=== PATIENT | male | born 1940 | race Caucasian/White ===

== ENCOUNTER → 2016-09-29 | Outpatient (CLI) | payer MEDICARE, BC ==
[2016-09-29 17:47] LABS: Blood Urea Nitrogen 15 mg/dL (9-20); Non-African American GFR(MDRD) >60 (>60 ml/min/1.73 sqM)
--- NOTE | 2016-09-30 08:17 | CT ---
EXAMINATION TYPE: CT abdomen pelvis w con DATE OF EXAM: 09/29/2016 6:59 PM COMPARISON: 06/07/2011 INDICATION: weight loss and generalized pain DLP: 372.8 mGycm, Automated exposure control for dose reduction was used. CONTRAST: 100 mL of Omnipaque 300. Study performed with Oral Contrast TECHNIQUE: Axial images were obtained from above the diaphragm to the pubic rami in the axial plane a t 5 mm thick sections. Reconstructed images are reviewed on the computer in the coronal plane. FINDINGS: Limited CT sections are obtained the lung bases. Emphysematous changes are within the lung bases. Mi nimal lingular pneumonitis is margin.. CT ABDOMEN: Liver: There is a 3.1 cm cyst measuring 12 Hounsfield units in the medial right lobe liver. Directly adjacent is a 2.0 cm cyst measuring 18 Hounsfield. Additional cysts are within the left lobe liver me asuring 1.3, 1.3, 0.8 cm these are smaller which are difficult to confirm as simple cysts. Additional punctate hypodensities are scattered within the right and left lobe liver too small to classify with a hypodense appearance suggestive for cysts. Spleen: Normal Pancreas: Normal Adrenal glands: The adrenal glands are normal. Gallbladder: Normal Kidneys: No masses are evident. No hydronephrosis is present. No cysts are present. Delayed images were obtained through the kidneys, which remain unremarkable. Aorta: Vascular calcification is within the aorta. Subtle fusiform prominence is within the mid abdo magda aorta with maximum AP dimension 2.2 cm. Inferior vena cava: Normal. CT PELVIS: Loops of bowel within the abdomen and pelvis are normal. There are loops of bowel which are incom pletely distended or lack oral contrast limiting their evaluation. Scattered diverticuli throughout t he sigmoid colon. No suspicious adjacent inflammatory changes evident to suggest acute diverticulitis . Appendix: Not clearly identified. No suspicious tubular structures are evident. Urinary bladder: Normal. Genitourinary structures: Prostate contains calcification. Osseous structures: No suspicious lytic or sclerotic lesions. Scoliosis is present. Degenerative join t changes are at the bilateral hips COMPARISON: Hepatic cysts were present previously. Diverticulosis is unchanged. Emphysematous changes at the lung bases likewise appears stable IMPRESSIONS: 1. Diverticulosis without acute diverticulitis sigmoid colon. 2. Hepatic cysts
== END | disposition home or self-care (01) ==
LOC: RADCTMAIN 16:47
PROVIDERS: ATTEND Family Medicine
DX: K57.90 Diverticulosis of intestine, part unspecified, without perforation or abscess without bleeding (principal); K76.89 Other specified diseases of liver; Z85.46 Personal history of malignant neoplasm of prostate
CPT/HCPCS: 82565; 84520; 74177; 36415; Q9967

== ENCOUNTER 2017-01-21 11:19 | Inpatient (IN) | payer MEDICARE, BC ==
--- NOTE | 2017-01-21 11:57 | ED ---
General Adult HPI - General Chief complaint: Shortness of Breath Stated complaint: diff breathing Time Seen by Provider: 01/21/17 11:46 Source: patient, RN notes reviewed Mode of arrival: ambulatory Limitations: no limitations - History of Present Illness Initial comments: Patient is a pleasant 76-year-old male presenting to the emergency department with complaints of difficulty in breathing. Patient states he was somewhat vague as last week and did have a sudden sharp discomfort of the right upper chest. Patient states he has had some difficulty in breathing since that time that has progressed. Patient has been short of breath at nighttime and now with exertion. Symptoms seemed to be worse especially today. No pain since 1 week ago. Patient did go to his doctor prior to arrival and was told his lung collapsed and to come to the emergency department. - Related Data Home Medications Medication Instructions Recorded Confirmed Fluticasone/Vilanterol [Breo 1 puff INHALATION RT-Q4H 01/21/17 01/21/17 Ellipta 100-25 Mcg Inhaler] Terazosin HCl 5 mg PO HS 01/21/17 01/21/17 Allergies Allergy/AdvReac Type Severity Reaction Status Date / Time No Known Allergies Allergy Verified 01/21/17 12:13 Review of Systems ROS Statement: Those systems with pertinent positive or pertinent negative responses have been documented in the HPI. ROS Other: All systems not noted in ROS Statement are negative. Constitutional: Denies: fever Eyes: Denies: eye pain ENT: Denies: ear pain Respiratory: Reports: dyspnea Cardiovascular: Denies: palpitations Endocrine: Denies: fatigue Gastrointestinal: Denies: abdominal pain Genitourinary: Denies: dysuria Musculoskeletal: Denies: back pain Skin: Denies: rash Neurological: Denies: weakness Past Medical History Past Medical History: Cancer Additional Past Medical History / Comment(s): pneumothorax rt in 1969 History of Any Multi-Drug Resistant Organisms: None Reported Past Surgical History: Bowel Resection, Heart Catheterization Past Psychological History: No Psychological Hx Reported Smoking Status: Former smoker Past Alcohol Use History: None Reported Past Drug Use History: None Reported General Exam Limitations: no limitations General appearance: alert, in no apparent distress Head exam: Present: atraumatic Eye exam: Present: normal appearance, PERRL ENT exam: Present: normal oropharynx Neck exam: Present: normal inspection Respiratory exam: Present: decreased breath sounds (On the right side) Cardiovascular Exam: Present: regular rate, normal rhythm GI/Abdominal exam: Present: soft. Absent: tenderness Extremities exam: Present: normal inspection Neurological exam: Present: alert Psychiatric exam: Present: normal affect, normal mood Skin exam: Absent: rash Course Vital Signs 01/21/17 01/21/17 01/21/17 11:30 12:35 13:00 Temperature 98.3 F Pulse Rate 110 H 102 H 106 H Respiratory 26 H 18 Rate Blood Pressure 134/67 128/74 O2 Sat by Pulse 87 L 95 96 Oximetry 01/21/17 01/21/17 01/21/17 13:41 13:50 13:53 Temperature Pulse Rate 98 91 91 Respiratory 18 18 18 Rate Blood Pressure 119/69 125/82 151/89 O2 Sat by Pulse 99 99 99 Oximetry 01/21/17 01/21/17 01/21/17 13:59 14:06 14:12 Temperature Pulse Rate 83 80 83 Respiratory 18 18 18 Rate Blood Pressure 142/86 133/79 146/87 O2 Sat by Pulse 100 100 100 Oximetry 01/21/17 01/21/17 01/21/17 14:17 14:52 15:14 Temperature Pulse Rate 100 73 74 Respiratory 18 18 18 Rate Blood Pressure 153/88 158/83 157/81 O2 Sat by Pulse 79 L 100 100 Oximetry - Reevaluation(s) Reevaluation #1: 01/21/17 14:16 Repeat x-ray shows improvement of upper lung pneumothorax however appears to be somewhat worse in the lower part. Wall suction had been turned off and this has been turned back on. We will do a repeat x-ray. 01/21/17 15:22 Case was earlier discussed with Dr. Cervantes, who will consult and also requests cardiothoracic consult with Dr. mcnair. Case discussed with Dr. madden, who will admit. Chest x-ray #3 shows improvement of pneumothorax. Procedures - Chest Tube Insertion Consent Obtained: written consent Time Out Performed: Yes Side of Procedure: right Indication: Pneumothorax Placed on monitor/pulse oximetry: Yes Site Prep: Chloroprep Local Anesthesia: Lidocaine 1% Insertion Site: 5th Intercostal Space, Other (Anterior axillary line) Scalpel: #10 Open into Pleural Space Using: Trocar Tube Size (Samoan): 28 Returns: Air Sutured in Place: Yes Dressing Applied: Petroleum Gauze Attached to Suction: Yes Type of Suction: Pleuravac Repeat X-ray Results: Other (Upper lung appears well inflated. Lower lung has continued or possibly worse pneumothorax) Patient Tolerated Procedure: no complications - Procedural Sedation Procedural Sedation Start Time: 13:50 Procedural Sedation Stop Time: 14:14 Indications: other (Pneumothorax) Mallampati Airway Score: 2 Preparation: lunchroom monitor applied, pulse oximeter, capnometry used, supplemental O2 applied, suction/airway equipment at bedside IV Etomidate Dose (mgs): 10 Complications: none Patient Tolerated Procedure: well, no complications Medical Decision Making - Lab Data Result diagrams: 01/21/17 11:50 01/21/17 11:50 Lab Results 01/21/17 01/21/17 01/21/17 Range/Units 11:50 11:50 11:50 WBC 6.3 (3.8-10.6) k/uL RBC 4.91 (4.30-5.90) m/uL Hgb 16.2 (13.0-17.5) gm/dL Hct 46.3 (39.0-53.0) % MCV 94.3 (80.0-100.0) fL MCH 32.9 (25.0-35.0) pg MCHC 34.9 (31.0-37.0) g/dL RDW 13.2 (11.5-15.5) % Plt Count 190 (150-450) k/uL Neutrophils % 79 % Lymphocytes % 13 % Monocytes % 5 % Eosinophils % 2 % Basophils % 0 % Neutrophils # 4.9 (1.3-7.7) k/uL Lymphocytes # 0.8 L (1.0-4.8) k/uL Monocytes # 0.3 (0-1.0) k/uL Eosinophils # 0.1 (0-0.7) k/uL Basophils # 0.0 (0-0.2) k/uL PT 11.1 (9.0-12.0) sec INR 1.1 (<1.1) APTT 27.1 (22.0-30.0) sec Sodium 144 (137-145) mmol/L Potassium 4.3 (3.5-5.1) mmol/L Chloride 106 (98-107) mmol/L Carbon Dioxide 26 (22-30) mmol/L Anion Gap 12 mmol/L BUN 13 (9-20) mg/dL Creatinine 0.90 (0.66-1.25) mg/dL Est GFR (MDRD) Af Amer >60 (>60 ml/min/1.73 sqM) Est GFR (MDRD) Non-Af >60 (>60 ml/min/1.73 sqM) Glucose 112 H (74-99) mg/dL Calcium 9.7 (8.4-10.2) mg/dL Total Bilirubin 0.8 (0.2-1.3) mg/dL AST 18 (17-59) U/L ALT 17 L (21-72) U/L Alkaline Phosphatase 88 (38-126) U/L Total Protein 7.9 (6.3-8.2) g/dL Albumin 4.7 (3.5-5.0) g/dL - Radiology Data Radiology results: image reviewed (Chest x-ray shows moderate to large right pneumothorax) Critical Care Time Critical Care Time: Yes Total Critical Care Time: 32 Disposition Clinical Impression: Pneumothorax Disposition: ADMITTED IP TO THIS [facility] Referrals: Osvaldo Cummings MD [Primary Care Provider] - 1-2 days
[2017-01-21 12:17] LABS: Basophils % (A) 0 %; CH 33.1; CHCM 35.3; Eosinophils # (A) 0.1 k/uL (0-0.7); Eosinophils % (A) 2 %; HCT 46.3 % (39.0-53.0); HDW 2.94; HGB 16.2 gm/dL (13.0-17.5); Luc # (Auto) 0.05; Luc % (Auto) 1; Lymphocytes # (A) 0.8 k/uL (1.0-4.8); Lymphocytes % (A) 13 %; MCH 32.9 pg (25.0-35.0); MCHC 34.9 g/dL (31.0-37.0); MCV 94.3 fL (80.0-100.0); Mean Platelet Volume 6.8; Monocytes # (A) 0.3 k/uL (0-1.0); Monocytes % (A) 5 %; Neutrophils # (A) 4.9 k/uL (1.3-7.7); Neutrophils % (A) 79 %; RBC 4.91 m/uL (4.30-5.90); RDW 13.2 % (11.5-15.5); WBC 6.3 k/uL (3.8-10.6); WBC (Perox) 5.62
[2017-01-21 12:20] LABS: INR 1.1 (<1.1); Partial Thromboplastin Time 27.1 sec (22.0-30.0); Prothrombin Time 11.1 sec (9.0-12.0)
[2017-01-21 12:29] LABS: ALT 17 U/L (21-72); AST 18 U/L (17-59); Alkaline Phosphatase 88 U/L (38-126); Anion Gap 12 mmol/L; Blood Urea Nitrogen 13 mg/dL (9-20); Calcium 9.7 mg/dL (8.4-10.2); Carbon Dioxide 26 mmol/L (22-30); Chloride 106 mmol/L (98-107); Glucose 112 mg/dL (74-99); Non-African American GFR(MDRD) >60 (>60 ml/min/1.73 sqM); Potassium 4.3 mmol/L (3.5-5.1); Sodium 144 mmol/L (137-145); Total Bilirubin 0.8 mg/dL (0.2-1.3); Total Protein 7.9 g/dL (6.3-8.2)
[2017-01-21] MEDS ORDERED: LORazepam 2 MG/ML SYRINGE IV STA (12:30)
--- NOTE | 2017-01-21 12:30 | XR ---
EXAMINATION TYPE: XR chest 2V DATE OF EXAM: 01/21/2017 12:13 PM COMPARISON: NONE TECHNIQUE: PA and lateral views submitted. HISTORY: Pneumonia FINDINGS: Diffuse emphysematous changes are seen. However there appears to be a pleural reflection along the up per and mid right lateral chest suspicious for large pneumothorax. Due to positioning and rotation co uld not assess for deviation of the mediastinum. Left lung clear. Surgical clips are noted in the axi lla. Results called to the emergency room. IMPRESSION: 1. Findings are suspicious for a large right pneumothorax estimated at 40%. Recommend CT chest.
[2017-01-21] MEDS ORDERED: HYDROmorphone 1 MG/ML 1 ML SYRINGE IVP STA (13:30)
[2017-01-21] MEDS ORDERED: ETOMIDATE 2 MG/ML 10 ML VIAL IVP STA (13:50)
--- NOTE | 2017-01-21 14:30 | XR ---
EXAMINATION TYPE: XR chest 1V portable DATE OF EXAM: 01/21/2017 2:18 PM Comparison: 01/21/2017, earlier today Clinical History: 76-year-old male with pain status post right chest tube insertion Findings: Apically directed right-sided chest tube has been placed. There is residual moderate sized pneumothor ax with a prominent lateral component. The previous apical component has significantly decreased in s ize. There is some interstitial densities within the reinflated right upper lobe possibly representin g edematous change. Heart is normal size. Left lung and pleural space appear clear. Impression: Partial reinflation of the right upper lobe after right chest tube placement. Moderate-sized pneumoth orax remains primarily with a lateral component.
--- NOTE | 2017-01-21 15:11 | XR ---
EXAMINATION TYPE: XR chest 1V portable DATE OF EXAM: 01/21/2017 2:46 PM Comparison: Earlier today Clinical History: 76-year-old male Pneumothorax Findings: Right-sided chest tube remains. There is progressive decrease in the patient's pneumothorax. No appre ciable pneumothorax remains. Band of atelectasis or scar at the right mid to lower lung. Heart is upp er limits of normal in size. Left lung and pleural space clear. Impression: Right-sided chest tube in place. There is progressive expansion of the right lung. No residual pneumo thorax is appreciated.
[2017-01-21] MEDS ORDERED: NALOXONE 0.4 MG/ML 1 ML VIAL IV PRN (15:23)
[2017-01-21] MEDS ORDERED: ONDANSETRON 4 MG/2 ML VIAL IVP STA (15:31)
[2017-01-21] MEDS: SODIUM CHLORIDE 0.9% 1,000 ML IV SCH (15:34)
--- NOTE | 2017-01-21 15:52 | P.GSCN ---
History of Present Illness Consult date: 01/21/17 Reason for Consult: Spontaneous pneumothorax History of present illness: The patient is a 76-year-old male who presented to the emergency department earlier today with difficulty breathing. Apparently his shortness of breath began about a week ago when he was in [place]. He had some right-sided chest discomfort at that time as well. Today the pain and breathlessness became worse and he saw his primary care physician. A chest x-ray revealed a large right-sided pneumothorax. The patient was referred directly to the emergency department. A chest tube was placed by the ED physician with reexpansion of the right lung. Apparently he had a similar episode of spontaneous right pneumothorax approximately 40 years ago which was treated in a like manner. We were asked to see him for chest tube management. Review of Systems All systems: negative - Cardiovascular Reports shortness of breath - Gastrointestinal Reports nausea Past Medical History Past Medical History: Cancer Additional Past Medical History / Comment(s): pneumothorax rt in 1969 History of Any Multi-Drug Resistant Organisms: None Reported Past Surgical History: Bowel Resection, Heart Catheterization Past Psychological History: No Psychological Hx Reported Smoking Status: Current every day smoker Past Alcohol Use History: None Reported Past Drug Use History: None Reported Medications and Allergies Home Medications Medication Instructions Recorded Confirmed Type Fluticasone/Vilanterol [Breo 1 puff INHALATION RT-Q4H 01/21/17 01/21/17 History Ellipta 100-25 Mcg Inhaler] Terazosin HCl 5 mg PO HS 01/21/17 01/21/17 History Allergies Allergy/AdvReac Type Severity Reaction Status Date / Time No Known Allergies Allergy Verified 01/21/17 12:13 Surgical - Exam Vital Signs Temp Pulse Resp BP Pulse Ox 98.3 F 110 H 26 H 134/67 87 L 01/21/17 11:30 01/21/17 11:30 01/21/17 11:30 01/21/17 11:30 01/21/17 11:30 - General cachectic - Eyes normal ocular movement - Respiratory normal respiratory effort, clear to auscultation - Cardiovascular Rhythm: regular - Abdomen Abdomen: soft, non tender - Psychiatric oriented to time, oriented to person, oriented to place, speech is normal Results - Labs 01/21/17 11:50 01/21/17 11:50 Abnormal Lab Results - Last 24 Hours (Table) 01/21/17 01/21/17 Range/Units 11:50 11:50 Lymphocytes # 0.8 L (1.0-4.8) k/uL Glucose 112 H (74-99) mg/dL ALT 17 L (21-72) U/L Diabetes panel 01/21/17 Range/Units 11:50 Sodium 144 (137-145) mmol/L Potassium 4.3 (3.5-5.1) mmol/L Chloride 106 (98-107) mmol/L Carbon Dioxide 26 (22-30) mmol/L BUN 13 (9-20) mg/dL Creatinine 0.90 (0.66-1.25) mg/dL Glucose 112 H (74-99) mg/dL Calcium 9.7 (8.4-10.2) mg/dL AST 18 (17-59) U/L ALT 17 L (21-72) U/L Alkaline Phosphatase 88 (38-126) U/L Total Protein 7.9 (6.3-8.2) g/dL Albumin 4.7 (3.5-5.0) g/dL Calcium panel 01/21/17 Range/Units 11:50 Calcium 9.7 (8.4-10.2) mg/dL Albumin 4.7 (3.5-5.0) g/dL Pituitary panel 01/21/17 Range/Units 11:50 Sodium 144 (137-145) mmol/L Potassium 4.3 (3.5-5.1) mmol/L Chloride 106 (98-107) mmol/L Carbon Dioxide 26 (22-30) mmol/L BUN 13 (9-20) mg/dL Creatinine 0.90 (0.66-1.25) mg/dL Glucose 112 H (74-99) mg/dL Calcium 9.7 (8.4-10.2) mg/dL Adrenal panel 01/21/17 Range/Units 11:50 Sodium 144 (137-145) mmol/L Potassium 4.3 (3.5-5.1) mmol/L Chloride 106 (98-107) mmol/L Carbon Dioxide 26 (22-30) mmol/L BUN 13 (9-20) mg/dL Creatinine 0.90 (0.66-1.25) mg/dL Glucose 112 H (74-99) mg/dL Calcium 9.7 (8.4-10.2) mg/dL Total Bilirubin 0.8 (0.2-1.3) mg/dL AST 18 (17-59) U/L ALT 17 L (21-72) U/L Alkaline Phosphatase 88 (38-126) U/L Total Protein 7.9 (6.3-8.2) g/dL Albumin 4.7 (3.5-5.0) g/dL - Imaging Chest x-ray: image reviewed Assessment and Plan (1) Pneumothorax Status: Acute Plan: The patient's initial chest x-ray in the emergency department revealed a large right spontaneous pneumothorax. A chest tube was placed by the emergency department physician and follow up x-ray revealed reexpansion of the right lung. There is no air leak noted on suction. The patient will be admitted to the floor for observation. I would keep the chest tube to suction for now and plan on ordering a follow-up chest x-ray in the morning. Thank you for allowing me to participate in the care of this patient. If you have any questions please feel free to contact me at your earliest convenience. Time with Patient: Greater than 30
[2017-01-21] MEDS ORDERED: MORPHINE SULFATE 4 MG/ML SYRINGE IVP STA (16:09)
[2017-01-21 18:12] VITALS: BMI 16.9
[2017-01-21] MEDS ORDERED: ACETAMINOPHEN TAB 500 MG TAB PO PRN (19:38)
[2017-01-21] MEDS: KETOROLAC 30 MG/ML 1 ML VIAL IVP SCH (19:46)
[2017-01-22] MEDS: KETOROLAC 30 MG/ML 1 ML VIAL IVP SCH ×5 (00:23→23:49)
--- NOTE | 2017-01-22 10:59 | XR ---
EXAMINATION TYPE: XR chest 1V DATE OF EXAM: 01/22/2017 10:40 AM COMPARISON: 01/21/2017 HISTORY: 76-year-old male right-sided pneumothorax follow-up, chest tube. TECHNIQUE: Single frontal view of the chest is obtained. FINDINGS: Heart is normal size. Continued medial right basilar opacity probably atelectasis. Apically directed right-sided chest tube is in place. Possible trace medial right apical pneumothorax. Underlying emphy sema. IMPRESSION: Right-sided chest tube with possible trace medial right apical pneumothorax. Continued focal opacity along the right heart margin likely atelectasis.
--- NOTE | 2017-01-22 11:25 | P.PN ---
Progress Note - Text Thoracic Surgery Nursing POD: #1, right pleural chest tube insertion by emergency room for large right pneumothorax Patient awake and alert, no distress noted, no specific complaints. Vital Signs: Afebrile Vital Signs - 24 hr 01/21/17 01/21/17 01/21/17 11:30 12:35 13:00 Temperature 98.3 F Pulse Rate 110 H 102 H 106 H Pulse Rate [ Right] Respiratory 26 H 18 Rate Blood Pressure 134/67 128/74 Blood Pressure [Right Arm] O2 Sat by Pulse 87 L 95 96 Oximetry 01/21/17 01/21/17 01/21/17 13:41 13:50 13:53 Temperature Pulse Rate 98 91 91 Pulse Rate [ Right] Respiratory 18 18 18 Rate Blood Pressure 119/69 125/82 151/89 Blood Pressure [Right Arm] O2 Sat by Pulse 99 99 99 Oximetry 01/21/17 01/21/17 01/21/17 13:59 14:06 14:12 Temperature Pulse Rate 83 80 83 Pulse Rate [ Right] Respiratory 18 18 18 Rate Blood Pressure 142/86 133/79 146/87 Blood Pressure [Right Arm] O2 Sat by Pulse 100 100 100 Oximetry 01/21/17 01/21/17 01/21/17 14:17 14:52 15:14 Temperature Pulse Rate 100 73 74 Pulse Rate [ Right] Respiratory 18 18 18 Rate Blood Pressure 153/88 158/83 157/81 Blood Pressure [Right Arm] O2 Sat by Pulse 79 L 100 100 Oximetry 01/21/17 01/21/17 01/21/17 16:00 16:56 22:27 Temperature 97.1 F L 97.5 F L Pulse Rate 83 80 Pulse Rate [ 68 Right] Respiratory 18 18 20 Rate Blood Pressure 167/72 182/81 Blood Pressure 163/73 [Right Arm] O2 Sat by Pulse 97 98 96 Oximetry 01/22/17 07:00 Temperature 97.9 F Pulse Rate Pulse Rate [ 60 Right] Respiratory 16 Rate Blood Pressure Blood Pressure 117/60 [Right Arm] O2 Sat by Pulse 96 Oximetry Labs: Short CBC 01/21/17 Range/Units 11:50 WBC 6.3 (3.8-10.6) k/uL Hgb 16.2 (13.0-17.5) gm/dL Hct 46.3 (39.0-53.0) % Plt Count 190 (150-450) k/uL Neutrophils # 4.9 (1.3-7.7) k/uL BMP 01/21/17 11:50 Sodium 144 Potassium 4.3 Chloride 106 Carbon Dioxide 26 BUN 13 Creatinine 0.90 Glucose 112 H Calcium 9.7 Liver Function 01/21/17 Range/Units 11:50 Total Bilirubin 0.8 (0.2-1.3) mg/dL AST 18 (17-59) U/L ALT 17 L (21-72) U/L Alkaline Phosphatase 88 (38-126) U/L Albumin 4.7 (3.5-5.0) g/dL Chest Tubes: Right pleural chest tube with very tiny intermittent air leak and minimal drainage. Intake & Output 01/21/17 01/22/17 01/22/17 22:59 06:59 14:59 Intake Total 140 240 Balance 140 240 Weight 61.235 kg Intake: IV 140 Sodium Chloride 0.9% 1, 140 000 ml @ 20 mls/hr IV . Q24H [facility] Rx#:[id number] Oral 240 Other: # Voids 1 Plan: Pneumothorax resolved with right pleural chest tube insertion. Chest tube remains to suction today-possibly to waterseal
[2017-01-22] MEDS ORDERED: NON-FORMULARY DRUG (Fluticasone/Vilanterol [Breo Ellipta 100-25 Mcg Inhaler] 1 PUFF) INHALATION SCH (12:00)
--- NOTE | 2017-01-22 13:16 | P.CNPUL ---
History of Present Illness Consult date: 01/22/17 Reason for consult: pneumothorax Chief complaint: Shortness of breath and chest pain History of present illness: Patient seen and examined covering for Dr. Sullivan This is a 76-year-old gentleman who presented emergency department complaining of shortness of breath and chest pain. The patient states that it can suddenly in the right side of his chest. He has a history of spontaneous pneumothorax about 40 years ago and states it felt the same. He was found in the emergency department to have a right pneumothorax and chest tube was placed. His most recent chest x-ray shows improvement of the right pneumothorax. The patient states he does smoke cigarettes, half a pack per day since he was a teenager. He did quit in the "cold turkey." He states that he hasn't had a cigarette since about a week ago. Review of Systems All systems: negative Past Medical History Past Medical History: Cancer Additional Past Medical History / Comment(s): pneumothorax rt in 1969 History of Any Multi-Drug Resistant Organisms: None Reported Past Surgical History: Bowel Resection, Heart Catheterization Past Psychological History: No Psychological Hx Reported Smoking Status: Current every day smoker Past Alcohol Use History: None Reported Past Drug Use History: None Reported - Past Family History Mother Family Medical History: No Reported History Medications and Allergies Home Medications Medication Instructions Recorded Confirmed Type Fluticasone/Vilanterol [Breo 1 puff INHALATION RT-Q4H 01/21/17 01/21/17 History Ellipta 100-25 Mcg Inhaler] Terazosin HCl 5 mg PO HS 01/21/17 01/21/17 History Allergies Allergy/AdvReac Type Severity Reaction Status Date / Time No Known Allergies Allergy Verified 01/21/17 12:13 Physical Exam Osteopathic Statement: *. No significant issues noted on an osteopathic structural exam other than those noted in the History and Physical/Consult. Vitals: Vital Signs Temp Pulse Pulse Resp BP BP Pulse Ox 01/22/17 07:00 97.9 F 60 16 117/60 96 01/21/17 22:27 97.5 F L 68 20 163/73 96 01/21/17 16:56 97.1 F L 80 18 182/81 98 01/21/17 16:00 83 18 167/72 97 01/21/17 15:14 74 18 157/81 100 01/21/17 14:52 73 18 158/83 100 05/19/17 14:17 100 18 153/88 79 L 01/21/17 14:12 83 18 146/87 100 01/21/17 14:06 80 18 133/79 100 01/21/17 13:59 83 18 142/86 100 01/21/17 13:53 91 18 151/89 99 01/21/17 13:50 91 18 125/82 99 01/21/17 13:41 98 18 119/69 99 Intake and Output 01/21/17 01/22/17 01/22/17 22:59 06:59 14:59 Intake Total 140 240 Balance 140 240 Intake: IV 140 Sodium Chloride 0.9% 1, 140 000 ml @ 20 mls/hr IV . Q24H [facility] Rx#:[id number] Oral 240 Other: # Voids 1 Weight 61.235 kg Gen.: Patient is alert and oriented 3, no acute distress, thin Cardiovascular: Regular rate and rhythm, S1/S2 Lungs: Diminished breath sounds bilaterally, right chest tube in place Abdomen: Soft nontender nondistended positive bowel sounds next Extremities: No edema Results - Laboratory Findings CBC and BMP: 01/21/17 11:50 01/21/17 11:50 PT/INR, D-dimer PT 11.1 sec (9.0-12.0) 01/21/17 11:50 INR 1.1 (<1.1) 01/21/17 11:50 Abnormal lab findings: Abnormal Labs 01/21/17 01/21/17 11:50 11:50 Lymphocytes # 0.8 L Glucose 112 H ALT 17 L - Diagnostic Findings Chest x-ray: report reviewed, image reviewed Assessment and Plan Plan: Acute right spontaneous pneumothorax, status post chest tube placement Concern for emphysema and underlying COPD Dyspnea and chest pain secondary to above Active tobacco abuse History of spontaneous pneumothorax 40 years ago History of skin cancer and prostate cancer, status post radiation O2 to maintain saturation greater than or equal to 88% Chest tube per thoracic surgery Will check alpha-1 Smoking cessation is highly recommended Bronchodilators and Pulmicort Nicotine TD Incentive spirometry and pulmonary hygiene GI and DVT prophylaxis Pain control Outpatient pulmonary follow up with PFT Thank you for this consultation we'll continue to follow along.
[2017-01-22] MEDS: IPRATROPIUM-ALBUTEROL 3 ML NEB INHALATION SCH ×2 (15:39→19:26)
[2017-01-22] MEDS: ENOXAPARIN 40 MG/0.4 ML SYRINGE SQ SCH (16:48)
[2017-01-22] MEDS: SODIUM CHLORIDE 0.9% 1,000 ML IV SCH (16:51)
[2017-01-22] MEDS: NICOTINE 21MG/24HR PATCH TRANSDERM SCH (16:52)
--- NOTE | 2017-01-22 17:12 | HP ---
DATE OF ADMISSION: 01/21/2017 PRESENTING COMPLAINT: Short of breath. HISTORY OF PRESENTING COMPLAINT: This 76-year-old patient of Dr. Cummings has had a prior pneumothorax in the 1970s, is a smoker, was in [place] celebrating his 50th anniversary with his , was feeling very short of breath, felt better lying down, decided to come down here and visit Dr. Cummings. Chest x-ray confirmed a pneumothorax, came down to the ER. A chest tube was placed. The patient feels a bit better, tired. The patient is a long-standing smoker. REVIEW OF SYSTEMS: CONSTITUTIONAL: Tired. HEENT: None. RESPIRATORY: As above. CARDIOVASCULAR: None. GASTROINTESTINAL: None. GENITOURINARY: None. MUSCULOSKELETAL: None. DERMATOLOGIC: None. HEMATOLOGIC: None. LYMPHATIC: None. PSYCHIATRIC: None. NEUROLOGICAL: None. PAST MEDICAL HISTORY: Pneumothorax. PAST SURGICAL HISTORY: Bowel resection, probably for cancer, cardiac catheterization. SOCIAL HISTORY: Smoking, close to 1/2 to 1 pack a day. . FAMILY HISTORY: Reviewed, noncontributory to presentation. HOME MEDICATIONS: 1. Breo Ellipta 1 puff q.4 2. Terazosin 5 mg p.o. q.h.s. for BPH FAMILY HISTORY: Reviewed, noncontributory to presentation currently. On examination, vital signs on presentation: Temperature 97.1, pulse 80, respirations 18, blood pressure 162/73, pulse ox 96% on 2L. GENERAL APPEARANCE: Thin build. Sitting up, not in distress. EYES: Pupils equal. Conjunctivae normal. HEENT: Oral cavity normal. NECK: JVD not raised. Mass not palpable. RESPIRATORY: Effort normal. LUNGS: Diminished breath sounds on the right side. CARDIOVASCULAR: First and second sounds normal. No edema. ABDOMEN: Soft, nontender. Liver and spleen not palpable. LYMPHATIC: No lymph node palpable in neck or axillae. PSYCHIATRY: Alert and oriented x3. Mood and affect normal. INVESTIGATIONS: White count 6.3, hemoglobin 16.2. Potassium 4.3, BUN and creatinine are normal. Chest x-ray: Large right pneumothorax, 40% on presentation, chest tube present. ASSESSMENT: 1. Recurrent spontaneous right-sided pneumothorax in a patient who had pneumothorax about 40 years ago in a patient who is a smoker. 2. Chronic obstructive pulmonary disease in a current smoker. 3. Chronic nicotine dependence. Patient is a smoker. 4. Benign prostatic hypertrophy. PLAN: Patient has a chest tube in place. Will resume patient's Hytrin. Will put the patient on bronchodilators and nebulized steroids. Care was discussed with the patient. Questions were answered.
--- NOTE | 2017-01-22 18:13 | XR ---
EXAMINATION TYPE: XR chest 1V portable DATE OF EXAM: 01/22/2017 6:07 PM Comparison: Earlier today Clinical History: 76-year-old male right chest pain Findings: Heart is normal size. Bullous change at the right base. It located direct and right-sided chest tube remains in place with relatively similar trace right apical pneumothorax. Similar opacity medial righ t base likely atelectasis. Impression: Overall stable exam. Right-sided chest tube with trace right apical pneumothorax.
[2017-01-22] MEDS: BUDESONIDE 0.5 MG/2 ML NEBU INHALATION SCH (19:26)
[2017-01-22] MEDS: TERAZOSIN 5 MG CAP PO SCH (20:56)
[2017-01-23] MEDS: KETOROLAC 30 MG/ML 1 ML VIAL IVP SCH ×4 (05:49→23:24)
[2017-01-23] MEDS: IPRATROPIUM-ALBUTEROL 3 ML NEB INHALATION SCH ×4 (08:48→19:51)
[2017-01-23] MEDS: BUDESONIDE 0.5 MG/2 ML NEBU INHALATION SCH ×2 (08:48→19:51)
[2017-01-23] MEDS: PANTOPRAZOLE 40 MG TABLET PO SCH (08:51)
[2017-01-23] MEDS: NICOTINE 21MG/24HR PATCH TRANSDERM SCH (08:52)
[2017-01-23] MEDS: ENOXAPARIN 40 MG/0.4 ML SYRINGE SQ SCH (08:52)
--- NOTE | 2017-01-23 09:27 | XR ---
EXAMINATION TYPE: XR chest 1V DATE OF EXAM: 01/23/2017 9:22 AM COMPARISON: 01/22/2017 INDICATION: Pneumothorax TECHNIQUE: Single frontal view of the chest is obtained. FINDINGS: The heart size is normal. The pulmonary vasculature is normal. The lungs are clear. Right-sided chest tube is present. Previous minimal right apical pneumothorax has resolved. Some atel ectasis is not excluded along the right heart border. IMPRESSION: 1. No pneumothorax is evident.
--- NOTE | 2017-01-23 13:30 | P.PN ---
Progress Note - Text Thoracic surgery nursing Postop day #2, right pleural chest tube insertion by emergency room for large right pneumothorax Patient is awake and alert, no distress noted, no specific complaints Vital Signs - 24 hr 01/22/17 01/22/17 01/22/17 15:00 15:40 15:54 Temperature 97.8 F Pulse Rate 64 68 Pulse Rate [ 65 Right] Respiratory 20 Rate Blood Pressure 115/63 [Right Arm] O2 Sat by Pulse 93 L Oximetry 01/22/17 01/22/17 01/22/17 16:00 17:56 19:26 Temperature Pulse Rate 66 Pulse Rate [ 63 Right] Respiratory 16 20 Rate Blood Pressure 164/72 [Right Arm] O2 Sat by Pulse 98 Oximetry 01/22/17 01/22/17 01/23/17 19:41 23:00 07:00 Temperature 97.7 F 97.5 F L Pulse Rate 68 Pulse Rate [ 65 59 L Right] Respiratory 18 20 Rate Blood Pressure 132/63 143/75 [Right Arm] O2 Sat by Pulse 95 95 Oximetry 01/23/17 01/23/17 08:49 09:02 Temperature Pulse Rate 68 66 Pulse Rate [ Right] Respiratory Rate Blood Pressure [Right Arm] O2 Sat by Pulse Oximetry Chest x-ray shows complete resolution of pneumothorax. Plan: Place patient on waterseal drainage Check chest x-ray in the morning If chest x-ray remains okay could possibly discontinue his chest tube.
[2017-01-23] MEDS ORDERED: POLYETHYLENE GLYCOL 3350 17 GM POWD.PACK PO ONE (14:00)
[2017-01-23] MEDS: SODIUM CHLORIDE 0.9% 1,000 ML IV SCH (15:13)
--- NOTE | 2017-01-23 16:02 | P.PN ---
Subjective Principal diagnosis: Right pneumothorax Patient seen and examined. Patient states his breathing has been good today. Chest tube is to waterseal. The patient denies any chest pain or shortness of breath at this time. He denies any cough, fevers, chills. Objective - Vital Signs Vital signs: Vital Signs Temp 97.5 F L 01/23/17 07:00 Pulse 66 01/23/17 09:02 Resp 20 01/23/17 15:42 BP 143/75 01/23/17 07:00 Pulse Ox 95 01/23/17 07:00 Intake & Output 01/22/17 01/23/17 01/23/17 18:59 06:59 18:59 Intake Total 400 1250 Balance 400 1250 Intake: IV 160 160 Sodium Chloride 0.9% 1, 160 160 000 ml @ 20 mls/hr IV . Q24H [facility] Rx#:[id number] Oral 240 1090 Other: # Voids 1 2 2 - Exam Gen.: Patient is alert and oriented 3, no acute distress, thin Cardiovascular: Regular rate and rhythm, S1/S2 Lungs: Diminished breath sounds bilaterally, right chest tube in place Abdomen: Soft nontender nondistended positive bowel sounds next Extremities: No edema - Labs CBC & Chem 7: 01/21/17 11:50 01/21/17 11:50 Assessment and Plan Plan: Acute right spontaneous pneumothorax, status post chest tube placement Concern for emphysema and underlying COPD Dyspnea and chest pain secondary to above Active tobacco abuse History of spontaneous pneumothorax 40 years ago History of skin cancer and prostate cancer, status post radiation O2 to maintain saturation greater than or equal to 88% Chest tube per thoracic surgery Pending alpha-1 Smoking cessation is highly recommended Bronchodilators and Pulmicort Nicotine TD Incentive spirometry and pulmonary hygiene GI and DVT prophylaxis Pain control Outpatient pulmonary follow up with PFT
[2017-01-23] MEDS: TERAZOSIN 5 MG CAP PO SCH (21:24)
[2017-01-23 22:27] VITALS: RESP 16
[2017-01-24] MEDS: KETOROLAC 30 MG/ML 1 ML VIAL IVP SCH ×2 (05:25→12:26)
[2017-01-24] MEDS: IPRATROPIUM-ALBUTEROL 3 ML NEB INHALATION SCH ×2 (07:44→11:37)
[2017-01-24] MEDS: BUDESONIDE 0.5 MG/2 ML NEBU INHALATION SCH (07:44)
[2017-01-24] MEDS: PANTOPRAZOLE 40 MG TABLET PO SCH (08:15)
[2017-01-24] MEDS: ENOXAPARIN 40 MG/0.4 ML SYRINGE SQ SCH (08:15)
[2017-01-24] MEDS: NICOTINE 21MG/24HR PATCH TRANSDERM SCH (08:16)
[2017-01-24 08:18] VITALS: TEMP 97.4
[2017-01-24] MEDS ORDERED: POLYETHYLENE GLYCOL 3350 17 GM POWD.PACK PO SCH (09:00)
--- NOTE | 2017-01-24 09:02 | XR ---
EXAMINATION TYPE: XR chest 1V DATE OF EXAM: 01/24/2017 8:52 AM COMPARISON: 01/23/2017 HISTORY: Pneumothorax TECHNIQUE: Single frontal view of the chest is obtained. FINDINGS: Right-sided chest tube seen with preserved surgical change in the axilla. Underlying COPD noted. No sizable pneumothorax. Heart size stable. Perihilar subsegmental changes are stable. IMPRESSION: 1. Chest tube with no sizable pneumothorax 2. Severe emphysematous changes.
--- NOTE | 2017-01-24 09:24 | PN ---
DATE OF SERVICE: 01/23/2017 PRESENTING COMPLAINT: Short of breath. INTERVAL HISTORY: This patient was seen and examined by me yesterday on 01/23/2017. Patient presented with pneumothorax. A right chest tube remains in place. Breathing is somewhat better. Tolerating his diet. Patient has not had a bowel movement for 4 days, at the baseline he goes every other day. Review of systems done for constitutional, cardiovascular, GI, pulmonary; relevant findings as above. Current medications are reviewed and include nebulized bronchodilators. On examination, temperature 97.5, pulse 59, respirations 20, blood pressure 142/75, pulse ox 95% on room air. GENERAL APPEARANCE: Sitting up in bed, not in distress. EYES: Pupils equal. Conjunctivae are normal. NECK: JVD not raised. Mass not palpable. RESPIRATORY: Effort normal. LUNGS: Diminished breath sounds. CHEST WALL: Right chest tube in place. ABDOMEN: Soft, nontender. Liver and spleen not palpable. PSYCHIATRY: Alert and oriented x3. Mood and affect was normal. INVESTIGATIONS: No blood work from today. Chest x-ray today shows pneumothorax. ASSESSMENT: 1. Recurrence of right-sided pneumothorax in a patient who had pneumothorax over 40 years ago and a smoker with a chest tube in place. 2. Chronic obstructive pulmonary disease in a current smoker. 3. Chronic nicotine dependence, patient is a smoker. 4. Benign prostatic hypertrophy. 5. Constipation. PLAN: Care was discussed with the patient. Continue current medication and treatment plan. Will start the patient on MiraLax. Also will begin a diaper.
[2017-01-24 09:51] LABS: CH 32.7; HCT 42.1 % (39.0-53.0); HDW 2.74; HGB 13.9 gm/dL (13.0-17.5); MCH 31.9 pg (25.0-35.0); MCV 96.6 fL (80.0-100.0); Mean Platelet Volume 7.1; RBC 4.36 m/uL (4.30-5.90); RDW 13.4 % (11.5-15.5)
[2017-01-24 09:58] LABS: Anion Gap 9 mmol/L; Blood Urea Nitrogen 21 mg/dL (9-20); Calcium 8.9 mg/dL (8.4-10.2); Carbon Dioxide 26 mmol/L (22-30); Chloride 105 mmol/L (98-107); Glucose 106 mg/dL (74-99); Non-African American GFR(MDRD) >60 (>60 ml/min/1.73 sqM); Potassium 3.9 mmol/L (3.5-5.1); Sodium 140 mmol/L (137-145)
--- NOTE | 2017-01-24 10:18 | P.PN ---
Subjective Principal diagnosis: POD #3 right pleural chest tube insertion by the emergency room for large right pneumothorax. Patient currently sitting up in bed in no apparent distress. Wants to go home. Objective - Vital Signs Vital signs: Vital Signs Temp 97.4 F L 01/24/17 07:25 Pulse 60 01/24/17 07:55 Resp 16 01/24/17 07:25 BP 145/70 01/24/17 07:25 Pulse Ox 94 L 01/24/17 07:40 Intake & Output 01/23/17 01/24/17 01/24/17 18:59 06:59 18:59 Intake Total 1250 20 Output Total 540 Balance 1250 -520 Intake: IV 160 20 Sodium Chloride 0.9% 1, 160 000 ml @ 20 mls/hr IV . Q24H [facility] Rx#:[id number] saline flush 20 Oral 1090 Output: Urine 540 Other: Voiding Method Urinal Urinal # Voids 2 1 - Constitutional General appearance: Present: cooperative, no acute distress - Respiratory Details: Lungs sounds was bilaterally. Respirations even, nonlabored. Currently on room air. Right pleural chest tube to waterseal for greater than 24 hours, clamped for several hours, removed. - Cardiovascular Details: S1, S2 present. Regular rate and rhythm. - Gastrointestinal Gastrointestinal Comment(s): Abdomen soft, nontender, nondistended. Active bowel sounds 4 quadrants. Tolerating diet. - Genitourinary Genitourinary Comment(s): Continues to void clear, yellow urine. - Musculoskeletal Musculoskeletal: Present: strength equal bilaterally - Psychiatric Psychiatric: Present: A&O x's 3, appropriate affect, intact judgment & insight - Allied health notes Allied health notes reviewed: nursing - Labs CBC & Chem 7: 01/24/17 09:06 01/24/17 09:06 Labs: Abnormal Lab Results - Last 24 Hours (Table) 01/24/17 Range/Units 09:06 BUN 21 H (9-20) mg/dL Glucose 106 H (74-99) mg/dL - Imaging and Cardiology Chest x-ray: report reviewed, image reviewed Assessment and Plan (1) Pneumothorax Status: Acute Plan: The patient was seen and examined with Dr. Malone this morning. Chest tube, which has been on waterseal since yesterday, was clamped this morning. When chest tube was unclamped there was no air leak present. Right pleural chest tube was discontinued without incident. Patient tolerated treated relatively well. Will obtain post removal chest x-ray. As long as the x-ray is okay the patient may be discharged home from our standpoint. Time with Patient: Greater than 30
--- NOTE | 2017-01-24 10:29 | XR ---
EXAMINATION TYPE: XR chest 1V portable DATE OF EXAM: 01/24/2017 10:24 AM HISTORY: post chest tube removal. REFERENCE: Previous study dated 01/24/2017. FINDINGS: There has been previous right axillary surgery. The patient's right pleural drain has been removed. The lungs are overinflated but clear. No sizable pneumothorax is seen. The heart is normal in size. IMPRESSION: 1. COPD. 2. POSTSURGICAL CHANGE. 3. NO SIZABLE PNEUMOTHORAX.
--- NOTE | 2017-01-24 13:48 | P.PN ---
Subjective Patient seen, exaimined and reevaluated today for right pneumothorax. Patient is seen and evaluated and examined. His breathing has been very good today. The chest tube was discontinued early this morning without any complications. The patient states that he feels very good like to go home. He denies any chest pain or shortness of breath cough fever or chills. Objective - Vital Signs Vital signs: Vital Signs Temp 97.4 F L 01/24/17 07:25 Pulse 68 01/24/17 11:50 Resp 16 01/24/17 07:25 BP 145/70 01/24/17 07:25 Pulse Ox 94 L 01/24/17 07:40 Intake & Output 01/23/17 01/24/17 01/24/17 18:59 06:59 18:59 Intake Total 1250 20 Output Total 540 Balance 1250 -520 Intake: IV 160 20 Sodium Chloride 0.9% 1, 160 000 ml @ 20 mls/hr IV . Q24H [facility] Rx#:[id number] saline flush 20 Oral 1090 Output: Urine 540 Other: Voiding Method Urinal Urinal # Voids 2 1 - Exam GENERAL EXAM: Alert, active, comfortable in no apparent distress. HEAD: Normocephalic. EYES: Normal reaction of pupils, equal size. NOSE: Clear with pink turbinates. THROAT: No erythema or exudates. NECK: No masses, no JVD. CHEST: No chest wall deformity. LUNGS: Poor air movement on the right side however this is improving. CVS: S1 and S2 normal with no audible mumurs, regular rhythm. ABDOMEN: No hepatosplenomegaly, normal bowel sounds, no guarding or rigidity. EXTREMITIES: No edema noted, pedal pulses palpable. SKIN: No rashes CENTRAL NERVOUS SYSTEM: No focal deficits, tone is normal in all 4 extremities. - Labs CBC & Chem 7: 01/24/17 09:06 01/24/17 09:06 Labs: Abnormal Lab Results - Last 24 Hours (Table) 01/24/17 Range/Units 09:06 BUN 21 H (9-20) mg/dL Glucose 106 H (74-99) mg/dL Assessment and Plan Plan: Acute right spontaneous pneumothorax, status post chest tube placement Concern for emphysema and underlying COPD Dyspnea and chest pain secondary to above Active tobacco abuse History of spontaneous pneumothorax 40 years ago History of skin cancer and prostate cancer, status post radiation Patient cleared for discharge from pulmonary standpoint Continue to monitor chest tube site Pending alpha-1 Smoking cessation is highly recommended Bronchodilators and Pulmicort Nicotine TD Incentive spirometry and pulmonary hygiene GI and DVT prophylaxis Pain control Outpatient pulmonary follow up with PFT
[2017-01-24 14:49] VITALS: BP 106/54; PULSE 86
--- NOTE | 2017-01-24 17:58 | CDI ---
In responding to this query, please exercise your independent professional judgment. The [facility] Coding Staff and Clinical Documentation Specialists appreciate your assistance in clarifying documentation, maintaining compliance with coding guidelines, accurately documenting patients condition and capturing severity of illness. The fact that a question is asked does not imply that any particular answer is desired or expected. Communication forms are a method of clarifying documentation and are not made part of the Legal Health Record. Thank you in advance for your clarification. Last Revision, November 2015 Leighton Hoskins [address] [facility] [place] [address] Documentation Clarification Form Date: 01/24/2017 3:21:00 PM From: Teresa Antonio Admit Date: 01/21/2017 3:23:00 PM Patient Name: Lazaro Herndon Visit Number: [id number] Discharge Date: Dr. Jacob Sullivan/Trisha Jones NP-Enrique Acute Spontaneous Pneumothorax is documented in the consult and progress notes. Patient history/risk factors: Pneumothorax right, in 1970, Current every day smoker Clinical Indicators: Complain of shortness of breath and right sided chest pain. CXR: Large right side pneumothorax Vital Signs: 134/67 110 26 98.3, 87 % RA, 95 % 2/L NC Treatment: Right side chest tube Oxygen 2/L (Monitor sat's titrate) In your professional opinion, can the type of acute right spontaneous pneumothorax be further specified as one of the following? Primary spontaneous pneumothorax Secondary spontaneous pneumothorax (please identify the etiology) Tension pneumothorax Other Unable to determine Please document in your progress notes in order to capture severity of illness and risk of mortality. Include clinical findings that support your diagnosis. FYI: Press F11 to launch patient chart Place X here if this finding has no clinical significance, is not applicable or if you are not able to provide any additional documentation. JENNIFER
--- NOTE | 2017-01-25 19:54 | DS ---
DATE OF ADMISSION: 01/21/2017 DATE OF DISCHARGE: 01/24/2017 FINAL DIAGNOSES: 1. Right-sided spontaneous pneumothorax, recurrent. 2. Chronic obstructive pulmonary disease in a current smoker. 3. Chronic nicotine dependence. Patient is a smoker. 4. Benign prostatic hypertrophy. HOSPITAL COURSE: This is a patient who ( ) lung about 40 years ago ( ) right-sided pneumothorax. Chest tube was placed. ( ) time of discharge, up and about. Patient was counseled against smoking. On exam, lungs have decreased breath sounds. CARDIOVASCULAR: First and second sounds normal. CONSULTATION: 1. Dr. Thompson from Cardiothoracic. 2. Dr. Marin from Pulmonary. DISCHARGE MEDICATIONS: 1. Breo Ellipta 1 puff q.4. 2. Terazosin 5 mg p.o. at bedtime. 3. Tylenol 1000 mg q.6 p.r.n. 4. Ventolin HFA 1 to 2 puffs q.6 p.r.n. 5. Atrovent HFA 2 puffs q.i.d. 6. Nicotine 20 mg patch. Follow up with Dr. Cummings on 02/03/17. Follow up with Dr. Malone on 02/04/17. Follow up with Dr. Sullivan in one week.
== END 2017-01-24 15:56 | disposition home or self-care (01) | DRG 201 ==
LOC: EC 11:19 → 5MS5E 15:23
PROVIDERS: ADMIT Hospitalist; ATTEND Hospitalist
PROC: 0W9930Z Drainage of Right Pleural Cavity with Drainage Device, Percutaneous Approach (ICD-10-PCS; principal; 2017-01-21)
DX: J93.11 Primary spontaneous pneumothorax (principal); J44.9 Chronic obstructive pulmonary disease, unspecified; F17.210 Nicotine dependence, cigarettes, uncomplicated; N40.0 Benign prostatic hyperplasia without lower urinary tract symptoms; K59.00 Constipation, unspecified; Z79.51 Long term (current) use of inhaled steroids; Z79.899 Other long term (current) drug therapy
CPT/HCPCS: 32551; 36415; 71010; 71020; 80048; 80053; 82103; 85025; 85027; 85610; 85730; 93005; 94640; 94760; 96374; 96375; 99152; 99291